=== PATIENT | female | born 1980 | race Caucasian/White ===

== ENCOUNTER 2017-02-17 05:28 | Inpatient (IN) | payer MEDICAID ==
[~2017-02-17] VITALS: Ht 162.6 cm; Wt 65.3 kg
[2017-02-17] MEDS ORDERED: DEXT 5%/LR + PITOCIN 20UNITS/L 1,000 ML IV SCH (05:37)
[2017-02-17] MEDS ORDERED: LACTATED RINGERS 1,000 ML IV SCH (05:37)
[2017-02-17] MEDS ORDERED: NALOXONE HCL 0.4 MG/ML 1ML VIAL IM PRN (05:45)
[2017-02-17] MEDS ORDERED: CARBOPROST TROMETHAMINE 250 MCG/ML AMPUL IM PRN (05:45)
[2017-02-17] MEDS ORDERED: METHYLERGONOVINE MALEATE 0.2 MG/ML IM PRN (05:45)
[2017-02-17] MEDS ORDERED: CEFAZOLIN 2,000 MG in DEXT 5% WATER 100 ML IV NR (06:00)
[2017-02-17 06:34] LABS: BASOPHILS % 0.7 % (0.0-2.0); EOSINOPHILS % 0.5 % (0.0-5.0); HEMOGLOBIN. 12.2 g/dL (12.0-16.0); LYMPHOCYTES % 26.1 % (20.0-50.0); MEAN CORPUSCULAR VOLUME 91.6 fL (81.0-99.0); MEAN PLATELET VOLUME 10.5 fl (7.4-10.4); MONOCYTES % 4.4 % (2.0-8.0); NEUTROPHILS % 68.3 % (40.0-76.0); PLATELET 144 x1000/uL (130-400); RED BLOOD CELL COUNT 3.93 mill/uL (4.2-5.4); RED CELL DISTRIBUTION WIDTH 15.1 % (11.6-14.6)
[2017-02-17 06:36] LABS: CLARITY URINE CLEAR (CLEAR); COLOR URINE YELLOW (YELLOW); GLUCOSE URINE NEGATIVE (NEGATIVE); KETONES URINE 2+ (NEGATIVE); LEUKOCYTE ESTERASE URINE NEGATIVE (NEGATIVE); NITRITE URINE NEGATIVE (NEGATIVE); OCCULT BLOOD URINE NEGATIVE (NEGATIVE); PROTEIN URINE NEGATIVE (NEGATIVE); SPECIFIC GRAVITY URINE 1.012 (1.005-1.030); UROBILINOGEN URINE 0.2 E.U./dL (0.2-1.0)
[2017-02-17 06:49] LABS: PARTIAL THROMBOPLASTIN TIME 27.1 sec (24.0-34.0); PROTHROMBIN TIME 10.1 sec
[2017-02-17 07:04] LABS: *AMPHETAMINES SCREEN URINE NEGATIVE (NEGATIVE); *BARBITURATES SCREEN URINE NEGATIVE (NEGATIVE); *BENZODIAZEPINES SCREEN URINE NEGATIVE (NEGATIVE); *COCAINE SCREEN URINE NEGATIVE (NEGATIVE); CANNABINOID URINE SCREEN NEGATIVE (NEGATIVE); METHADONE URINE SCREEN NEGATIVE (NEGATIVE); OPIATES URINE SCREEN NEGATIVE (NEGATIVE); PHENCYCLIDINE URINE SCREEN NEGATIVE (NEGATIVE)
[2017-02-17 07:20] LABS: HEPATITIS B SURFACE ANTIGEN NEGATIVE; RUBELLA IGG 110.3 IU/mL (4.99-10)
[2017-02-17] MEDS ORDERED: MORPHINE SULFATE/PF 1MG/ML 10ML AMP ONE (07:43)
[2017-02-17] MEDS ORDERED: MIDAZOLAM HCL 2 MG/2 ML VIAL ONE (07:44)
[2017-02-17] MEDS ORDERED: SODIUM CHLORIDE 0.9% 10ML VIAL ONE (07:45)
[2017-02-17] MEDS ORDERED: DEXAMETHASONE 4MG/ML 1ML VIAL ONE (07:45)
[2017-02-17] MEDS ORDERED: EPHEDRINE SULFATE 50MG/ML VIAL ONE (07:45)
[2017-02-17] MEDS ORDERED: ONDANSETRON HCL 4MG/2ML VIAL ONE (07:45)
[2017-02-17] MEDS ORDERED: CEFAZOLIN 2000 MG IV ONE (07:45)
[2017-02-17] MEDS ORDERED: PHENYLEPHRINE HCL 10 MG/ML 1ML (IV VIAL) IV ONE (07:45)
[2017-02-17] MEDS ORDERED: OXYTOCIN 10 UNITS/ML 1ML ONE (07:45)
[2017-02-17] MEDS ORDERED: ONDANSETRON HCL 4MG/2ML VIAL IV PRN ×2 (09:30→10:15)
[2017-02-17] MEDS ORDERED: DIPHENHYDRAMINE 25MG CAPSULE PO PRN (09:30)
[2017-02-17] MEDS ORDERED: BISACODYL 10MG SUPP PR PRN (09:30)
[2017-02-17] MEDS ORDERED: HYDROCODONE/ACETAMINOPHEN 5/325MG TABLET PO PRN ×2 (09:30)
[2017-02-17] MEDS ORDERED: RHO(D) IMMUNE GLOBULIN 300 MCG/SYR IM PRN (09:30)
[2017-02-17] MEDS ORDERED: OXYTOCIN 20 UNITS in LACTATED RINGERS 1,000 ML IV SCH (10:00)
[2017-02-17] MEDS ORDERED: NALOXONE HCL 0.4 MG/ML 1ML VIAL IV PRN (10:15)
[2017-02-17] MEDS ORDERED: DIPHENHYDRAMINE 50MG/ML VIAL IV PRN (10:15)
[2017-02-17] MEDS: KETOROLAC 30MG/ML VIAL IV SCH ×2 (10:15→22:29)
[2017-02-17] MEDS ORDERED: FENTANYL CITRATE/PF 50MCG/ML 2ML VIAL IV PRN (10:15)
[2017-02-17] MEDS ORDERED: MISOPROSTOL 200MCG TABLET ONE (11:51)
[2017-02-17] MEDS ORDERED: CARBOPROST TROMETHAMINE 250 MCG/ML AMPUL IM ONE (11:51)
[2017-02-17] MEDS ORDERED: METHYLERGONOVINE MALEATE 0.2 MG/ML ONE (11:51)
[2017-02-17 12:30] VITALS: BP 109/61
[2017-02-17 12:50] VITALS: BP 102/65
[2017-02-17 16:04] VITALS: BP 98/64
[2017-02-17 19:25] VITALS: BP 100/61
[2017-02-17] MEDS: LACTATED RINGERS 1,000 ML IV SCH (19:30)
[2017-02-18] VITALS: BP 98/69
[2017-02-18] MEDS: LACTATED RINGERS 1,000 ML IV SCH (01:39)
[2017-02-18] MEDS: KETOROLAC 30MG/ML VIAL IV SCH (04:22)
[2017-02-18 04:25] VITALS: BP 90/60
[2017-02-18 06:52] LABS: BASOPHILS % 0.4 % (0.0-2.0); EOSINOPHILS % 0.3 % (0.0-5.0); HEMATOCRIT. 30.6 % (36.0-48.0); HEMOGLOBIN. 10.2 g/dL (12.0-16.0); LYMPHOCYTES % 23.9 % (20.0-50.0); MEAN CORPUSCULAR HEMOGLOBIN 30.9 pg (28.0-32.0); MEAN CORPUSCULAR VOLUME 92.5 fL (81.0-99.0); MEAN PLATELET VOLUME 10.3 fl (7.4-10.4); MONOCYTES % 4.5 % (2.0-8.0); NEUTROPHILS % 70.9 % (40.0-76.0); PLATELET 128 x1000/uL (130-400); RED BLOOD CELL COUNT 3.31 mill/uL (4.2-5.4); RED CELL DISTRIBUTION WIDTH 15.2 % (11.6-14.6)
[2017-02-18 08:10] VITALS: BP 96/60
[2017-02-18] MEDS: SIMETHICONE 80MG TABLET CHEW PO SCH ×2 (09:16→22:20)
[2017-02-18] MEDS: IBUPROFEN 400MG TABLET PO PRN ×2 (12:35→22:21)
[2017-02-18 16:20] VITALS: BP 86/51
[2017-02-18 20:00] VITALS: BP 101/68
[2017-02-18 22:20] VITALS: BP 110/66
[2017-02-18] MEDS: DOCUSATE SODIUM 100MG CAPSULE PO SCH (22:20)
[2017-02-19 05:00] VITALS: BP 111/67
[2017-02-19] MEDS: IBUPROFEN 400MG TABLET PO PRN ×2 (05:18→15:17)
[2017-02-19] MEDS: SIMETHICONE 80MG TABLET CHEW PO SCH ×6 (07:52→21:46)
[2017-02-19 08:00] VITALS: BP 101/71
[2017-02-19 12:00] VITALS: BP 106/78
[2017-02-19 15:41] VITALS: BP 99/62
[2017-02-19 20:00] VITALS: BP 103/64
[2017-02-19] MEDS: DOCUSATE SODIUM 100MG CAPSULE PO SCH (21:45)
[2017-02-20] VITALS: BP 105/65
[2017-02-20 04:00] VITALS: BP 105/69
[2017-02-20 07:31] VITALS: BP 96/50
[2017-02-20] MEDS: SIMETHICONE 80MG TABLET CHEW PO SCH (08:24)
[2017-02-20] MEDS: IBUPROFEN 400MG TABLET PO PRN (08:25)
== END 2017-02-20 10:45 | disposition home or self-care (01) | DRG 540 ==
LOC: L&D 05:28 → OBSVTOIN 05:28 → 7EST PP/OB 12:30
PROVIDERS: ADMIT Obstetrics & Gynecology; ATTEND Obstetrics & Gynecology
PROC: 10D00Z1 Extraction of Products of Conception, Low, Open Approach (ICD-10-PCS; principal; 2017-02-17 09:35)
DX: O69.81X0 Labor and delivery complicated by cord around neck, without compression, not applicable or unspecified (principal); O34.211 Maternal care for low transverse scar from previous cesarean delivery; O09.523 Supervision of elderly multigravida, third trimester; Z3A.39 39 weeks gestation of pregnancy; Z37.0 Single live birth; Z86.32 Personal history of gestational diabetes
CPT/HCPCS: 36415; 80305; 81003; 82962; 85025; 85610; 85730; 86592; 86703; 86762; 86850; 86900; 87340; 88307; A4216; G0378; J0171; J0690; J1100; J1885; J2210; J2250; J2274; J2370; J2405; J3010; J7060; J7120; A4315